=== PATIENT | female | born 1955 | race Native Hawaiian/Other Pacific Islander ===

== ENCOUNTER 2016-10-27 14:50 | Outpatient (CLI) | payer OTHER ==
[~2016-10-27 14:50] MED LIST: ALPR0.5T24 PO; AMBIEN5 MG PO; AMLO5TAB PO; DULO60CA2 PO; ESTRING2 MG PO; HYDROCO/APAP1 TA4 PO; LEVO0.0218 PO; METF500T PO; PEPCID40 MG PO; POT CHLORIDE PO; SIMV40TA57 PO; ZESTRIL30 MG PO
== END 2016-10-27 14:53 | disposition short-term general hospital (02) ==
LOC: AMB 14:50
DX: R07.89 Other chest pain (principal)
CPT/HCPCS: A0425; A0427

== ENCOUNTER 2016-10-27 14:50 | Emergency (ER) | payer OTHER ==
[~2016-10-27] VITALS: Ht 160 cm; Wt 110.7 kg
[2016-10-27 15:26] LABS: PLATELET COUNT 223 K/uL (152-353)
[2016-10-27 15:27] LABS: POTASSIUM 3.5 mmol/L (3.6-5.2)
[2016-10-27 16:30] VITALS: BP 108/69; TEMP 98.1
== END 2016-10-27 16:30 | disposition home or self-care (01) ==
LOC: ED 14:50
DX: K21.9 Gastro-esophageal reflux disease without esophagitis (principal); R07.89 Other chest pain; M32.9 Systemic lupus erythematosus, unspecified; E11.9 Type 2 diabetes mellitus without complications
CPT/HCPCS: 80053; 82550; 83036; 84484; 85027; 86318; 93005; 99284

== ENCOUNTER 2017-03-24 11:09 | Outpatient (CLI) | payer OTHER ==
[2017-03-24 12:16] LABS: POTASSIUM 3.6 mmol/L (3.6-5.2)
== END 2017-03-24 19:00 | disposition home or self-care (01) ==
LOC: LABW 11:09
PROVIDERS: Internal Medicine Cardiovascular Disease
DX: I50.9 Heart failure, unspecified (principal); Z79.899 Other long term (current) drug therapy; Z51.81 Encounter for therapeutic drug level monitoring
CPT/HCPCS: 36415; 80048; 83880; 85651

== ENCOUNTER 2017-04-07 10:44 | Emergency (ER) | payer OTHER ==
[~2017-04-07] VITALS: Ht 160 cm; Wt 113.4 kg
[2017-04-07 11:03] VITALS: TEMP 98.4
[2017-04-07 13:20] VITALS: BP 124/84
== END 2017-04-07 13:30 | disposition home or self-care (01) ==
LOC: ED 10:44
DX: S89.82XA Other specified injuries of left lower leg, initial encounter (principal); M25.462 Effusion, left knee; R60.9 Edema, unspecified; X50.1XXA Overexertion from prolonged static or awkward postures, initial encounter; Y93.89 Activity, other specified; Y92.488 Other paved roadways as the place of occurrence of the external cause
CPT/HCPCS: 96372; 99283; J1885; J2270

== ENCOUNTER 2017-04-28 17:09 | Observation (INO) | payer OTHER ==
[~2017-04-28] VITALS: Ht 160 cm; Wt 108.4 kg
[2017-04-28 17:17] VITALS: BP 151/74; TEMP 98.3
[2017-04-28 17:50] LABS: PLATELET COUNT 255 K/uL (152-353)
[2017-04-28 17:56] LABS: POTASSIUM 3.5 mmol/L (3.6-5.2)
[2017-04-29 01:39] VITALS: BP 133/69; TEMP 98.3; Ht 160 cm; Wt 108.4 kg
--- NOTE | 2017-04-29 02:17 | NUR ---
04/28/172003 PATIENT ADMITTED TO FLOOR FROM ER VIA WHEELCHIAR, ALERT AND ORINENTED , IV IS SALINE LOCKED TO THE RIGHT WRIST, NO S/S OF IRRITATION NOTED. IS AT BEDSIDE.
[2017-04-29 04:00] VITALS: BP 112/53; TEMP 98.6
[2017-04-29 08:00] VITALS: BP 128/63; TEMP 98.8
[2017-04-29 12:00] VITALS: BP 110/55; TEMP 98.2
== END 2017-04-29 14:56 | disposition home or self-care (01) ==
LOC: ED 17:09 → MED/SURG 18:30
PROVIDERS: ADMIT Family Medicine
DX: R07.89 Other chest pain (principal); E11.9 Type 2 diabetes mellitus without complications; R06.02 Shortness of breath
CPT/HCPCS: 36415; 80053; 82550; 83880; 84484; 85027; 85610; 85730; 93005; 96365; 96374; 99220; 99284; G0378; J1940

== ENCOUNTER → 2017-05-23 14:51 | Outpatient (CLI) | payer OTHER | END | disposition home or self-care (01) | LOC: AMB 14:51 | DX: R51 Headache (principal) ==

== ENCOUNTER 2017-06-05 08:56 | Outpatient (CLI) | payer OTHER | END 2017-06-05 19:39 | disposition home or self-care (01) | LOC: RESP 08:56 | DX: R06.02 Shortness of breath (principal) ==

== ENCOUNTER 2018-04-12 14:44 | Emergency (ER) | payer OTHER ==
[~2018-04-12] VITALS: Ht 160 cm; Wt 104.3 kg
[2018-04-12 16:14] LABS: PLATELET COUNT 280 K/uL (152-353)
[2018-04-12 16:28] LABS: POTASSIUM 4.2 mmol/L (3.6-5.2)
[2018-04-12 22:50] VITALS: BP 118/74; TEMP 98
== END 2018-04-12 22:50 | disposition short-term general hospital (02) ==
LOC: ED 14:44
DX: N17.9 Acute kidney failure, unspecified (principal)
CPT/HCPCS: 36415; 80053; 81000; 85027; 96365; 99284

== ENCOUNTER 2018-08-09 14:02 | Outpatient (CLI) | payer OTHER | END 2018-08-09 20:35 | disposition home or self-care (01) | LOC: RAD 14:02 | DX: M85.89 Other specified disorders of bone density and structure, multiple sites (principal); M89.9 Disorder of bone, unspecified ==

== ENCOUNTER 2018-08-10 14:31 | Outpatient (CLI) | payer OTHER | END 2018-08-10 22:28 | disposition home or self-care (01) | LOC: LABW 14:31 | DX: K64.0 First degree hemorrhoids (principal) | CPT/HCPCS: 82272 ==

== ENCOUNTER 2018-09-03 08:07 | Outpatient (CLI) | payer OTHER | END 2018-09-03 19:29 | disposition home or self-care (01) | LOC: MRI 08:07 | DX: M25.511 Pain in right shoulder (principal) ==

== ENCOUNTER 2018-12-25 10:01 | Outpatient (CLI) | payer OTHER ==
[2018-12-25 11:09] LABS: PLATELET COUNT 308 K/uL (152-353); POTASSIUM 4.1 mmol/L (3.6-5.2)
== END 2018-12-25 20:58 | disposition home or self-care (01) ==
LOC: LABW 10:01
PROVIDERS: Internal Medicine Nephrology
DX: D64.89 Other specified anemias (principal); I12.9 Hypertensive chronic kidney disease with stage 1 through stage 4 chronic kidney disease, or unspecified chronic kidney disease; N18.3 Chronic kidney disease, stage 3 (moderate); E11.9 Type 2 diabetes mellitus without complications; M79.7 Fibromyalgia; E78.00 Pure hypercholesterolemia, unspecified; N25.81 Secondary hyperparathyroidism of renal origin; N20.0 Calculus of kidney; M06.80 Other specified rheumatoid arthritis, unspecified site; M35.01 Sjogren syndrome with keratoconjunctivitis
CPT/HCPCS: 36415; 80069; 82043; 82570; 85027

== ENCOUNTER 2019-01-07 09:08 | Outpatient (CLI) | payer OTHER | END 2019-01-07 23:59 | disposition home or self-care (01) | LOC: RESP 09:08 | DX: M35.01 Sjogren syndrome with keratoconjunctivitis (principal); R05 Cough ==

== ENCOUNTER 2019-03-28 13:57 | Outpatient (CLI) | payer OTHER ==
[2019-03-28 14:40] LABS: PLATELET COUNT 297 K/uL (152-353)
[2019-03-28 14:52] LABS: POTASSIUM 3.8 mmol/L (3.6-5.2)
== END 2019-03-28 19:58 | disposition home or self-care (01) ==
LOC: LABW 13:57
PROVIDERS: Internal Medicine Nephrology
DX: N18.3 Chronic kidney disease, stage 3 (moderate) (principal); E11.9 Type 2 diabetes mellitus without complications; N25.81 Secondary hyperparathyroidism of renal origin; N20.0 Calculus of kidney
CPT/HCPCS: 36415; 80069; 82043; 82570; 83970; 85027

== ENCOUNTER 2019-07-03 09:58 | Outpatient (CLI) | payer OTHER ==
[2019-07-03 10:21] LABS: POTASSIUM 3.4 mmol/L (3.6-5.2)
[2019-07-03 10:34] LABS: PLATELET COUNT 268 K/uL (152-353)
== END 2019-07-03 20:54 | disposition home or self-care (01) ==
LOC: LABW 09:58
PROVIDERS: Internal Medicine Cardiovascular Disease
DX: R94.39 Abnormal result of other cardiovascular function study (principal); Z01.810 Encounter for preprocedural cardiovascular examination; Z51.81 Encounter for therapeutic drug level monitoring
CPT/HCPCS: 36415; 80048; 85027; 85610

== ENCOUNTER 2019-08-02 09:17 | Outpatient (CLI) | payer OTHER ==
[2019-08-02 09:42] LABS: PLATELET COUNT 250 K/uL (152-353)
== END 2019-08-02 19:27 | disposition home or self-care (01) ==
LOC: LABW 09:17
PROVIDERS: Internal Medicine Nephrology
DX: I12.9 Hypertensive chronic kidney disease with stage 1 through stage 4 chronic kidney disease, or unspecified chronic kidney disease (principal); E11.9 Type 2 diabetes mellitus without complications; E78.00 Pure hypercholesterolemia, unspecified; D64.89 Other specified anemias; K21.9 Gastro-esophageal reflux disease without esophagitis; N18.3 Chronic kidney disease, stage 3 (moderate); N25.81 Secondary hyperparathyroidism of renal origin; N20.0 Calculus of kidney; M06.80 Other specified rheumatoid arthritis, unspecified site; M79.7 Fibromyalgia
CPT/HCPCS: 36415; 83540; 83550; 85027

== ENCOUNTER 2019-12-06 11:13 | Outpatient (CLI) | payer OTHER ==
[2019-12-06 11:41] LABS: PLATELET COUNT 232 K/uL (152-353)
[2019-12-06 17:02] LABS: POTASSIUM 3.5 mmol/L (3.6-5.2)
== END 2019-12-06 19:46 | disposition home or self-care (01) ==
LOC: LABW 11:13
PROVIDERS: ATTEND Internal Medicine Nephrology
DX: E11.9 Type 2 diabetes mellitus without complications (principal); E78.00 Pure hypercholesterolemia, unspecified; D64.89 Other specified anemias; I12.9 Hypertensive chronic kidney disease with stage 1 through stage 4 chronic kidney disease, or unspecified chronic kidney disease; J18.9 Pneumonia, unspecified organism; K21.9 Gastro-esophageal reflux disease without esophagitis; K58.9 Irritable bowel syndrome, unspecified; N18.3 Chronic kidney disease, stage 3 (moderate); N25.81 Secondary hyperparathyroidism of renal origin; N20.0 Calculus of kidney; M06.9 Rheumatoid arthritis, unspecified; M19.90 Unspecified osteoarthritis, unspecified site; M79.7 Fibromyalgia; Z28.21 Immunization not carried out because of patient refusal
CPT/HCPCS: 36415; 80069; 81000; 82043; 82570; 83735; 85027; 87077; 87086; 87088; 87186

== ENCOUNTER 2020-03-19 14:20 | Outpatient (CLI) | payer OTHER ==
[2020-03-19 14:46] LABS: PLATELET COUNT 238 K/uL (152-353)
== END 2020-03-19 20:25 | disposition home or self-care (01) ==
LOC: LABW 14:20
PROVIDERS: Internal Medicine Nephrology
DX: E11.9 Type 2 diabetes mellitus without complications (principal); D64.89 Other specified anemias; K21.9 Gastro-esophageal reflux disease without esophagitis; N18.30 Chronic kidney disease, stage 3 unspecified; N25.81 Secondary hyperparathyroidism of renal origin; N20.0 Calculus of kidney; M06.9 Rheumatoid arthritis, unspecified; R82.71 Bacteriuria; I12.9 Hypertensive chronic kidney disease with stage 1 through stage 4 chronic kidney disease, or unspecified chronic kidney disease
CPT/HCPCS: 36415; 80069; 83735; 83970; 85027

== ENCOUNTER 2020-07-10 10:43 | Outpatient (CLI) | payer OTHER | END 2020-07-10 20:56 | disposition home or self-care (01) | LOC: MAMMO 10:43 | PROVIDERS: ATTEND Nurse Practitioner | DX: Z12.31 Encounter for screening mammogram for malignant neoplasm of breast (principal) ==

== ENCOUNTER 2020-08-20 11:09 | Outpatient (CLI) | payer OTHER ==
[2020-08-20 11:34] LABS: PLATELET COUNT 244 K/uL (152-353)
[2020-08-20 11:42] LABS: POTASSIUM 3.9 mmol/L (3.6-5.2)
== END 2020-08-20 22:19 | disposition home or self-care (01) ==
LOC: LABW 11:09
PROVIDERS: ATTEND Internal Medicine Nephrology
DX: E11.9 Type 2 diabetes mellitus without complications (principal); D64.89 Other specified anemias; K21.9 Gastro-esophageal reflux disease without esophagitis; N18.30 Chronic kidney disease, stage 3 unspecified; N25.81 Secondary hyperparathyroidism of renal origin; N20.0 Calculus of kidney; M06.9 Rheumatoid arthritis, unspecified; R82.71 Bacteriuria; I12.9 Hypertensive chronic kidney disease with stage 1 through stage 4 chronic kidney disease, or unspecified chronic kidney disease
CPT/HCPCS: 36415; 80069; 81000; 82043; 82570; 85027; 87077; 87086; 87088; 87186

== ENCOUNTER 2020-11-23 13:51 | Outpatient (CLI) | payer OTHER ==
[2020-11-23 14:34] LABS: PLATELET COUNT 257 K/uL (152-353)
[2020-11-23 14:36] LABS: POTASSIUM 4.7 mmol/L (3.6-5.2)
== END 2020-11-23 21:30 | disposition home or self-care (01) ==
LOC: LABW 13:51
PROVIDERS: ATTEND Internal Medicine Nephrology
DX: E11.9 Type 2 diabetes mellitus without complications (principal); D64.89 Other specified anemias; K21.9 Gastro-esophageal reflux disease without esophagitis; N18.4 Chronic kidney disease, stage 4 (severe); N25.81 Secondary hyperparathyroidism of renal origin; N20.0 Calculus of kidney; M06.9 Rheumatoid arthritis, unspecified; I12.9 Hypertensive chronic kidney disease with stage 1 through stage 4 chronic kidney disease, or unspecified chronic kidney disease
CPT/HCPCS: 36415; 80069; 81000; 82043; 82570; 85027

== ENCOUNTER 2021-03-01 13:28 | Outpatient (CLI) | payer OTHER | END 2021-03-01 20:08 | disposition home or self-care (01) | LOC: LAB 13:28 | PROVIDERS: ATTEND Internal Medicine Gastroenterology | DX: K59.1 Functional diarrhea (principal) | CPT/HCPCS: 82272; 82705; 83630; 87015; 87045; 87324; 87328; 87329; 87449; 87899 ==

== ENCOUNTER 2021-08-16 12:37 | Outpatient (CLI) | payer OTHER | END 2021-08-16 19:11 | disposition home or self-care (01) | LOC: RAD 12:37 | PROVIDERS: ATTEND Orthopaedic Surgery | DX: M25.561 Pain in right knee (principal) ==

== ENCOUNTER 2021-08-24 09:02 | Outpatient (CLI) | payer OTHER ==
[2021-08-24 09:28] LABS: PLATELET COUNT 220 K/uL (152-353)
[2021-08-24 09:42] LABS: POTASSIUM 4.2 mmol/L (3.6-5.2)
== END 2021-08-24 19:41 | disposition home or self-care (01) ==
LOC: LABW 09:02
PROVIDERS: ATTEND Internal Medicine Nephrology
DX: E11.9 Type 2 diabetes mellitus without complications (principal); E78.00 Pure hypercholesterolemia, unspecified; D64.89 Other specified anemias; N18.32 Chronic kidney disease, stage 3b; N20.0 Calculus of kidney; Z86.39 Personal history of other endocrine, nutritional and metabolic disease; Z09 Encounter for follow-up examination after completed treatment for conditions other than malignant neoplasm; I12.9 Hypertensive chronic kidney disease with stage 1 through stage 4 chronic kidney disease, or unspecified chronic kidney disease
CPT/HCPCS: 36415; 80069; 81000; 82043; 85027

== ENCOUNTER 2021-09-27 09:33 | Outpatient (CLI) | payer OTHER | END 2021-09-27 18:50 | disposition home or self-care (01) | LOC: MAMMO 09:33 | PROVIDERS: ATTEND Nurse Practitioner | DX: Z12.31 Encounter for screening mammogram for malignant neoplasm of breast (principal) ==

== ENCOUNTER 2021-12-29 10:31 | Outpatient (CLI) | payer OTHER ==
[2021-12-29 10:54] LABS: PLATELET COUNT 194 K/uL (152-353)
[2021-12-29 11:01] LABS: POTASSIUM 4.2 mmol/L (3.6-5.2)
== END 2021-12-29 20:00 | disposition home or self-care (01) ==
LOC: LABW 10:31
PROVIDERS: ATTEND Internal Medicine Nephrology
DX: E11.9 Type 2 diabetes mellitus without complications (principal); E78.49 Other hyperlipidemia; D64.89 Other specified anemias; I12.9 Hypertensive chronic kidney disease with stage 1 through stage 4 chronic kidney disease, or unspecified chronic kidney disease; K21.9 Gastro-esophageal reflux disease without esophagitis; K58.8 Other irritable bowel syndrome; N18.32 Chronic kidney disease, stage 3b; N20.0 Calculus of kidney; M06.9 Rheumatoid arthritis, unspecified; M19.90 Unspecified osteoarthritis, unspecified site; M79.7 Fibromyalgia
CPT/HCPCS: 36415; 80069; 81002; 82043; 83970; 85027

== ENCOUNTER → 2022-03-15 | Outpatient (CLI) | payer OTHER | LOC: RAD 08:24 | PROVIDERS: ATTEND Nurse Practitioner Family | DX: M06.4 Inflammatory polyarthropathy (principal); M25.511 Pain in right shoulder; M35.01 Sjogren syndrome with keratoconjunctivitis; M85.89 Other specified disorders of bone density and structure, multiple sites; Z79.899 Other long term (current) drug therapy ==

== ENCOUNTER 2022-08-09 08:00 | Outpatient (CLI) | payer OTHER ==
[2022-08-09 08:51] LABS: PLATELET COUNT 300 K/uL (152-353)
== END 2022-08-09 19:17 | disposition home or self-care (01) ==
LOC: LABW 08:00
PROVIDERS: ATTEND Internal Medicine Nephrology
DX: E11.9 Type 2 diabetes mellitus without complications (principal); E78.49 Other hyperlipidemia; D64.89 Other specified anemias; I12.9 Hypertensive chronic kidney disease with stage 1 through stage 4 chronic kidney disease, or unspecified chronic kidney disease; N18.32 Chronic kidney disease, stage 3b; N20.0 Calculus of kidney; M06.8A Other specified rheumatoid arthritis, other specified site
CPT/HCPCS: 36415; 80069; 81002; 82043; 82570; 83970; 84156; 85027

== ENCOUNTER 2022-12-16 10:02 | Outpatient (CLI) | payer OTHER | END 2022-12-16 19:12 | disposition home or self-care (01) | LOC: RAD 10:02 | PROVIDERS: ATTEND Physical Medicine & Rehabilitation | DX: M54.16 Radiculopathy, lumbar region (principal) ==

== ENCOUNTER 2023-01-25 10:09 | Outpatient (CLI) | payer OTHER | END 2023-01-25 19:16 | disposition home or self-care (01) | LOC: RAD 10:09 | PROVIDERS: ATTEND Nurse Practitioner Family | DX: M06.4 Inflammatory polyarthropathy (principal); M79.671 Pain in right foot; M81.0 Age-related osteoporosis without current pathological fracture; Z79.899 Other long term (current) drug therapy ==

== ENCOUNTER 2023-02-15 09:58 | Outpatient (CLI) | payer OTHER ==
[2023-02-15 10:28] LABS: PLATELET COUNT 205 K/uL (152-353)
[2023-02-15 10:39] LABS: POTASSIUM 4.3 mmol/L (3.6-5.2)
== END 2023-02-15 19:22 | disposition home or self-care (01) ==
LOC: LABW 09:58
PROVIDERS: ATTEND Internal Medicine Nephrology
DX: M43.16 Spondylolisthesis, lumbar region (principal); Z79.899 Other long term (current) drug therapy
CPT/HCPCS: 36415; 80069; 81002; 82043; 83970; 85027